=== PATIENT | female | born 1990 | race Caucasian/White ===

== ENCOUNTER 2024-02-21 04:29 | Emergency (ER) | payer SELFPAY ==
[2024-02-21 05:20] LABS: Bacteria/HPF None Seen HPF (None Seen); Bilirubin Negative (Negative); Blood, Urine Negative (Negative); CAUTI Indications for Culture Pelvic or flank pain; Clarity Clear (Clear); Glucose, Urine (Dipstick) Normal (Negative); Ketone, Urine Negative (Negative); Leukocyte Negative Leu/uL (Negative); Nitrite Negative (Negative); Protein, Urine (Dipstick) 10 mg/dL (Neg-Trace); RBC/HPF 0-3 HPF (0-3); Specific Gravity, Urine 1.017 (1.002-1.036); Squamous Epithelial 0-3 HPF (0-3); Urobilinogen Normal mg/dL (Less than 2); WBC/HPF 0-3 HPF (0-3); pH, Urine 6.5 (5.0-9.0)
[2024-02-21 05:21] LABS: Urine Culture Reflex No No
[2024-02-21 05:22] LABS: Pregnancy Test - Urine (BHCG) Negative (Negative); Pregu Control Background? CLEAR/WHITE (CLR/WHITE); Pregu Control Bar Appear? YES (CONTROL BAR); Specific Gravity 1.017 (1.002-1.036)
[2024-02-21 05:44] LABS: #Basophils 0.08 10x3/uL (0.0-0.2); %Basophils 0.8 % (0.0-1.0); %Eosinophils 0.4 % (0.0-10.0); %Neutrophils 76.6 % (42.0-75.0); Hematocrit 33.3 % (36.0-47.0); Hemoglobin 10.4 g/dL (12.0-16.0); Mean Corpuscular HGB CONC 31.2 g/dL (32.0-36.0); Mean Corpuscular Hemoglobin 24.1 pg (27.0-31.0); Mean Corpuscular Volume 77.1 fL (78.0-98.0); Mean Platelet Volume 10.2 fL (7.4-10.4); Platelet Count 323 10x3/uL (130-400); RBC Distribution Width 16.6 % (11.5-14.5); Red Blood Cell (RBC) Count 4.32 mill/uL (4.20-5.40)
[2024-02-21 06:08] LABS: ALT (SGPT) 14 U/L (8-55); AST (SGOT) 27 U/L (5-34); Albumin 4.2 g/dL (3.5-5.0); Alkaline Phosphatase 64 U/L (40-110); Anion Gap 10 mmol/L (10-20); BUN (Urea Nitrogen) 7 mg/dL (7.0-18.7); Bilirubin, Total 0.3 mg/dL (0.2-1.2); Calc. Creatinine Clearance 0 mL/min (70-130); Calcium 9.4 mg/dL (7.8-10.44); Carbon Dioxide 25 mmol/L (22-29); Chloride 108 mmol/L (98-107); Estimated GFR 120; Globulin 2.8 g/dL (2.4-3.5); Glucose 101 mg/dL (70-105); Potassium 4.2 mmol/L (3.5-5.1); Sodium 139 mmol/L (136-145)
[2024-02-21] MEDS ORDERED: Ketorolac Tromethamine 30 MG (1 mL) VIAL ONE (06:40)
[2024-02-21] MEDS ORDERED: Iopamidol-370 76% 500 ML MDV (1 ML CHARGE) ONE (11:29)
== END 2024-02-21 09:37 | disposition home or self-care (01) ==
LOC: ERS 04:29
DX: N83.201 Unspecified ovarian cyst, right side (principal); F17.290 Nicotine dependence, other tobacco product, uncomplicated
CPT/HCPCS: 36415; 74177; 76856; 80053; 81001; 81025; 85025; 96374; J1885; Q9967

== ENCOUNTER 2025-01-17 07:32 | Emergency (ER) | payer BC, SELFPAY ==
[2025-01-17] MEDS ORDERED: Ketorolac Tromethamine 30 MG (1 mL) VIAL ONE (08:02)
== END 2025-01-17 08:52 | disposition home or self-care (01) ==
LOC: ERS 07:32
DX: U07.1 COVID-19 (principal); R11.2 Nausea with vomiting, unspecified; F17.290 Nicotine dependence, other tobacco product, uncomplicated
CPT/HCPCS: 87081; 87428; 87430; 96372; 99283; J1885; Q0162